=== PATIENT | female | born 1985 | race African-American/Black ===

== ENCOUNTER 2018-11-13 10:17 | Emergency (ER) | payer MEDICAID, BC ==
[~2018-11-13] VITALS: Ht 162.6 cm; Wt 61.4 kg
[~2018-11-13 10:17] MED LIST: TYLENOL
[2018-11-13] MEDS ORDERED: KETOROLAC TROMETHAMINE 30 MG/ML VIAL IM ONE (11:15)
[2018-11-13 12:54] VITALS: BP 116/72
== END 2018-11-13 13:05 | disposition home or self-care (01) ==
LOC: EMS 10:18
DX: R51 Headache (principal)
CPT/HCPCS: 81025; 96372; 99283; J1885